=== PATIENT | female | born 1960 | race Caucasian/White ===

== ENCOUNTER → 2016-04-08 | Day surgery (SDC) | payer BC ==
--- NOTE | 2016-04-03 21:37 | HP ---
ADMISSION HISTORY AND PHYSICAL: DATE OF ADMISSION: 04/08/16 ATTENDING SURGEON: Dr. Noah Longoria (dictated by KEEGAN Hong). CHIEF COMPLAINT: Umbilical pain, status post umbilical hernia repair with mesh. HISTORY OF PRESENT ILLNESS: This is a generally healthy 56-year-old female, who underwent repair of umbilical hernia on 11/06/15 with a Ventralex I believe 4.3 cm mesh. She did experience some problem with wound infection, which was treated successfully with antibiotic. Over the 16 months, she has had intermittent pain ranging from minimal to significant particularly in the first weeks of February. She did see Dr. Longoria at that time and discussed options. Because of persistent symptoms, she has opted to proceed as scheduled with exploration of umbilical wound with removal of mesh and primary repair of umbilical hernia. She understands the indications, risks, benefits and alternatives as well as the expected perioperative course. PAST MEDICAL HISTORY: Unremarkable for any chronic medical problem. She does use loratadine p.r.n. for seasonal allergies. PAST SURGICAL HISTORY: Previous surgeries include open umbilical hernia repair with mesh as noted above, diagnostic laparoscopies x2 for endometriosis, surgery for her left index finger and D and C remotely. No surgical or anesthesia problems reported otherwise. CURRENT MEDICATIONS: 1. Loratadine 10 mg once daily p.r.n. 2. Ibuprofen p.r.n. DRUG ALLERGIES: BACTRIM (nausea and vomiting), PENICILLIN and ERYTHROMYCIN ( rash), TETRACYCLINE (rash and nausea) FAMILY HISTORY: Negative for anesthesia problems, bleeding, or clotting disorders. SOCIAL HISTORY: The patient is . She works as a teacher. She denies the use of tobacco. She drinks between 3 and 4 glasses of wine per week. REVIEW OF SYSTEMS: General: No recent constitutional symptoms or acute illnesses other than described in the HPI. Weight has been stable. Cardiovascular: No chest pain, palpitations, history of heart murmur. Respiratory: No history of asthma, chronic cough, or shortness of breath. GI: No problems reported. She did undergo screening colonoscopy around age 51 which she states was a normal study, was recommended followup of 10 years. : No problems reported. DIRECTOR OF INDIVIDUAL GIVING: She is up to date within the past year for breast exam and mammogram and within the past 3 years, her pelvic exam and Pap smear all reportedly normal. Endocrine: No diabetes or thyroid dysfunction. PHYSICAL EXAMINATION GENERAL: Well-nourished, well-developed female, in no acute distress. VITAL SIGNS: Height 5 feet 4 inches, weight 120 pounds by history. Other vital signs per nursing. HEENT: Pupils equal and round, reactive. EOMs intact. No conjunctival pallor. Oropharynx: Teeth in good repair. No intraoral lesions. Mucous membranes are moist. NECK: No lymphadenopathy, thyromegaly, or masses. LUNGS: Clear to auscultation. No wheezes. HEART: Regular rate and rhythm. No murmur noted. BREAST: Not examined. ABDOMEN: Well-healed surgical scar. There is some palpable induration and/or from the mesh itself. On today's exam, this was minimally tender. There is no erythema or evidence of infection. The remainder of the abdomen is soft and nontender and without palpable masses or organomegaly. GENITALIA AND RECTAL: Not done. BACK: No spinous process or CVA tenderness. EXTREMITIES: No edema. NEUROLOGICAL: Grossly intact. SKIN: Warm and dry. No suspicious rashes or lesions noted. IMPRESSION: Umbilical pain, status post umbilical hernia repair with mesh. PLAN: Exploration of umbilical wound with removal of mesh and primary repair of umbilical hernia. KEEGAN MICHEL CC: Lexa Interiano NP, CORPORATE ANALYST* [id number]/[facility] #: [id number] MTDD
[~2016-04-08] MED LIST: Buffered Lidocaine 1% SYR 3ML* 3 ML/SYR SYRINGE INTRADERM ONE; Buffered Lidocaine 1% SYR 3ML* 3 ML/SYR SYRINGE ONE; Bupivacaine 0.5% W/EPI SDV* 30 ML VIAL ONE; Clindamycin 900 MG IVPREMIX(* 900 MG/50 ML SDV IV ONE; Dexamethasone IV* 4 MG/ML 1 ML (4 MG) ONE; DiMENhydriNATE IV* 50 MG/ML VIAL IV PUSH PRN; Ibuprofen TAB* 400 MG ONE; Ibuprofen TAB* 400 MG PO ONE; Lidocaine 1% INJ* 10 MG/ML 30 ML SDV ONE; Lidocaine 2% MPF* 2 ML VIAL ONE; Ondansetron INJ* 2 MG/ML VIAL ONE; Propofol* 10 MG/ML 20 ML BTL IV PUSH ONE; Scopolamine 1.5 mg* PATCH ONE; Scopolamine 1.5 mg* PATCH TRANSDERM SCH; Scopolamine PATCH Remove* 1 NOTE MISC PATCH OFF SCH; Sodium Citrate/Citric Acid* 15 ML UDC ONE; Sodium Citrate/Citric Acid* 15 ML UDC PO ONE; ceFAZolin 2 GM PREMIX (*) 0 GM/0 ML BAG IVPB ONE; fentaNYL* 50 MCG/ML 2 ML VIAL (100 MCG VIAL) IV PRN; fentaNYL* 50 MCG/ML 2 ML VIAL (100 MCG VIAL) ONE; oxyCODONE/Acetamin 5/325 MG* TAB ONE; oxyCODONE/Acetamin 5/325 MG* TAB PO PRN
--- NOTE | 2016-04-08 09:24 | SURGPN ---
Brief Operative Note - Surgery Procedures: Pre-OP Diagnoses: Abdominal pain s/p umbilical hernia repair with mesh Post-op Diagnosis: same Procedure: Explioration of umbilical incision, removal of mesh , and open umbilical hernia repair Surgeon: Von Asst: Jeaneth Anethesia: GA with LMA Bylebycharlene EBL: minimal IVF: 1000cc LR Specimen: foreign body Drains: none
[2016-04-08 10:15] VITALS: BP 118/80
--- NOTE | 2016-04-08 22:49 | OP ---
DATE OF OPERATION: 04/08/16 - [facility] DATE OF : 62 SURGEON: Dr. Longoria. NEGATIVE RETOUCHER: Dawna Eric NP ANESTHESIOLOGIST: Dr. Carl. ANESTHESIA: General anesthesia with LMA. PRE-OP DIAGNOSIS: Abdominal pain, status post umbilical hernia repair with mesh. POST-OP DIAGNOSIS: Abdominal pain, status post umbilical hernia repair with mesh. OPERATIVE PROCEDURE: Exploration of umbilical wound, removal of old mesh, and primary repair of umbilical hernia. ESTIMATED BLOOD LOSS: Minimal blood loss. IV FLUIDS: 1 L of crystalloid fluid given. SPECIMEN: Foreign body. DRAINS: None. COUNTS: Lap pad count and instrument count correct at the end of the procedure. DESCRIPTION OF PROCEDURE: The patient was identified in the preoperative area and marked. Case again discussed with her and her , going over the expectations. The patient wished to have this primarily closed despite any size of the hernia, and we agreed on this plan. She was taken back to the operating room. General anesthesia was induced. Sequential devices were on bilateral lower extremities. She received preoperative antibiotics and then her abdomen was prepped and draped in the standard surgical fashion and a time- out was performed. An infraumbilical incision was made. This was deepened down to the anterior fascia in the inferior aspect. Scarring was then taken down with sharp dissection until we freed up the umbilical skin from the underlying scarring. Once we had the defect identified, we cleared off fascia throughout 360 degrees. We did make a small rent in the anterior fascia just right of midline. This was just under 1 cm. Next with the scalpel we were able to enter into the mesh patch that had been placed at the hernia defect. Once we could grasp the mesh, we were able to dissect this entirely free from its peritoneal location in its entirety. The mesh was in the appropriate manner without wrinkling and came off with both sharp and blunt dissection in its entirety and was passed off in more than one section. The wound was then irrigated. Hemostasis was achieved. The defect measured approximately 2.25 cm and was primarily closed with #1 Surgipro sutures in a [id number] fashion. Four stitches in all were used in this fashion and we did place 2 simple sutures at the lateral aspect. We tied them at the end to assure that we did not have any intraabdominal content. Intraabdominally, we only saw omentum and there was no evidence of free fluid or any injury. The small rent in the anterior fascia was closed laterally with a single 0 Polysorb suture. The wound was irrigated. Hemostasis was achieved. Umbilical skin was tacked down with a 2-0 Polysorb suture and we reapproximated the defect with both 2-0 and 3-0 Polysorb sutures and a 4-0 Monocryl subcuticular suture. Steri -Strips and sterile dressing were applied. The patient tolerated the procedure well and was transferred to the PACU in stable condition. CC: Lexa Interiano NP; [facility] * [id number]/[facility] #: [id number] MTDD
== END | disposition home or self-care (01) ==
LOC: OR 06:24
PROVIDERS: ATTEND Surgery
DX: T85.848A Pain due to other internal prosthetic devices, implants and grafts, initial encounter (principal); Y83.1 Surgical operation with implant of artificial internal device as the cause of abnormal reaction of the patient, or of later complication, without mention of misadventure at the time of the procedure
CPT/HCPCS: 88304; A9270-GY; C1781; J0690; J1100; J2405; J2704; J3010

== ENCOUNTER 2017-03-20 09:48 | Emergency (ER) | payer BC ==
[2017-03-20 10:16] VITALS: BP 94/63
== END 2017-03-20 11:30 | disposition left against medical advice (07) ==
LOC: UCEAST 09:48
DX: Z53.21 Procedure and treatment not carried out due to patient leaving prior to being seen by health care provider (principal)

== ENCOUNTER 2017-07-25 17:54 | Emergency (ER) | payer BC ==
--- NOTE | 2017-07-25 18:24 | UC ---
FLU HPI - HPI Summary HPI Summary: Pt presents with fever, cough, sore throat, and body aches that began yesterday. 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 Has been taking ibuprofen for her symptoms with mild relief. Denies SOB, chest pain, abdominal pain, n/v/d/c. - History of Current Complaint Stated Complaint: FLU SYMPTOMS Time Seen by Provider: 07/25/17 18:17 Hx Obtained From: Patient Hx Last Menstrual Period: 3 yrs ago Onset/Duration: Sudden Onset Severity Currently: Moderate Severity Initially: Moderate Pain Intensity: 7 Pain Scale Used: 0-10 Numeric - Allergy/Home Medications Allergies/Adverse Reactions: Allergies Allergy/AdvReac Type Severity Reaction Status Date / Time erythromycin base Allergy Rash Verified 07/25/17 18:34 [From Erythrocin] Penicillins Allergy Rash Verified 07/25/17 18:34 sulfamethoxazole Allergy Nausea And Verified 07/25/17 18:34 [From Bactrim] Vomiting trimethoprim [From Bactrim] Allergy Nausea And Verified 07/25/17 18:34 Vomiting PMH/Surg Hx/FS Hx/Imm Hx - Additional Past Medical History Additional PMH: None Previously Healthy: Yes - Surgical History Surgical History: Yes Surgery Procedure, Year, and Place: "bumps on finger" R/T [place]RITIS, [place]. [place]OSCOPY FOR [place]OM[place]RIOSIS, 1990, [place]. [place] [facility] [place] - Family History Known Family History: Positive: Cardiac Disease Negative: Diabetes - Social History Occupation: Employed Full-time Lives: With Family Alcohol Use: Occasionally Alcohol Amount: DAILY X1 Substance Use Type: None Smoking Status (MU): Never Smoked Tobacco Review of Systems Constitutional: Fever, Fatigue, Other - Body aches Skin: Negative Eyes: Negative ENT: Sore Throat Respiratory: Cough Cardiovascular: Negative Gastrointestinal: Negative Neurovascular: Negative Neurological: Negative Psychological: Negative All Other Systems Reviewed And Are Negative: Yes Physical Exam - Summary Physical Exam Summary: GENERAL: NAD. Mildly ill appearing SKIN: No rashes, sores, lesions, or open wounds. HEENT: Head: AT/NC Eyes: EOM intact. Conjunctiva clear without inflammation or discharge. Ears: Hearing grossly normal. TMs intact, no bulging, erythema, or edema. Nose: Nasal mucosa pink and moist. NTTP maxillary and frontal sinus. Throat: Posterior oropharynx mild erythema. Without exudates or tonsillar enlargement. Uvula midline. NECK: Supple. Nontender. No lymphadenopathy. CHEST: CTAB. No r/r/w. No accessory muscle use. Breathing comfortably and in no distress. CV: RRR. Without m/r/g. Pulses intact. Brisk cap refill. NEURO: Alert. CN II-XII grossly intact. PSYCH: Age appropriate behavior. Triage Information Reviewed: Yes Flu Course/Dx - Course Course Of Treatment: POC flu A positive rx for tamiflu and continue with supportive care. - Differential Dx/Diagnosis Provider Diagnoses: Influenza A Discharge - Sign-Out/Discharge Documenting (check all that apply): Discharge/Admit/Transfer - Discharge Plan Condition: Stable Disposition: HOME Prescriptions: Oseltamivir CAP* [Tamiflu CAP*] 75 mg PO BID #20 cap Patient Education Materials: Influenza (DC) Referrals: Palma Stanford MD [Primary Care Provider] - Additional Instructions: If you develop a fever, shortness of breath, chest pain, new or worsening symptoms - please call your PCP or go to the ED. - Billing Disposition and Condition Condition: STABLE Disposition: HOME
[2017-07-25 18:29] VITALS: BP 122/76
[2017-07-25] MEDS ORDERED: Oseltamivir CAP* 75 MG CAP PO ONE (19:08)
== END 2017-07-25 19:10 | disposition home or self-care (01) ==
LOC: UCEAST 17:54
DX: J10.1 Influenza due to other identified influenza virus with other respiratory manifestations (principal); Z88.1 Allergy status to other antibiotic agents; Z88.0 Allergy status to penicillin; Z88.2 Allergy status to sulfonamides
CPT/HCPCS: 87502; 99212; A9270-GY; G0463

== ENCOUNTER 2018-05-25 07:20 | Emergency (ER) | payer BC ==
[2018-05-25] MEDS ORDERED: Ondansetron ODT TAB* 4 MG PO ONE (08:10)
[2018-05-25] MEDS ORDERED: NS 0.9% 1000 ML** 1,000 ML IV SCH (08:15)
--- NOTE | 2018-05-25 08:18 | UC ---
Nausea/Vomiting/Diarrhea HPI - HPI Summary HPI Summary: DAY 5 OF NAUSEA AND WATERY DIARRHEA. EPISODES AT LEAST EVERY HOUR SOMETIMES MORE FREQUENTLY. DENIES ANY BLOODY STOOLS. NO RECENT ANTIBIOTIC USE. PRIOR TO ONSET OF SYMPTOMS WAS VISITING FAMILY OUT OF STATE AND SO ATE OUT AT [employer] [employer]. FEELS FATIGUED AND DEHYDRATED. NO FEVER. INITIALLY HAD VOMITING WELL BUT THAT HAS ABATED ALTHOUGH THE NAUSEA HAS PERSISTED. DOES NOT WORK WITH ANIMALS. - History of Current Complaint Chief Complaint: UCGI Stated Complaint: DIARRHEA Time Seen by Provider: 05/25/18 07:52 Hx Obtained From: Patient, Family/Senior Internal Auditor - Hx Last Menstrual Period: 3 yrs ago Onset/Duration: Sudden Onset, Lasting Days, Still Present Timing: Constant Severity Initially: Moderate Severity Currently: Moderate Pain Intensity: 0 Pain Scale Used: 0-10 Numeric Location: Diffuse Aggravating Factor(s): Food Alleviating Factor(s): Nothing Nausea/Vomiting Presence: Nauseated, Vomiting Vomiting Characteristics: Nonbilious Diarrhea Presence: Yes Diarrhea Frequency: Every 15-60 minutes Diarrhea Duration: 3-7 days Diarrhea Characteristics: Watery - Allergies/Home Medications Allergies/Adverse Reactions: Allergies Allergy/AdvReac Type Severity Reaction Status Date / Time erythromycin base Allergy Rash Verified 05/25/18 07:32 [From Erythrocin] Penicillins Allergy Rash Verified 05/25/18 07:32 sulfamethoxazole Allergy Nausea And Verified 05/25/18 07:32 [From Bactrim] Vomiting trimethoprim [From Bactrim] Allergy Nausea And Verified 05/25/18 07:32 Vomiting PMH/Surg Hx/FS Hx/Imm Hx Previously Healthy: Yes - Surgical History Surgical History: Yes Surgery Procedure, Year, and Place: "bumps on finger" R/[place]RITIS, 2000 [place]. [place]OSCOPY FOR ENDOMETRIOSIS, 1990, [place]. UMBILICAL [place]ERNIA 2015, [facility] [place] - Family History Known Family History: Positive: Cardiac Disease Negative: Diabetes - Social History Alcohol Use: Daily Alcohol Amount: DAILY X1 Substance Use Type: None Smoking Status (MU): Never Smoked Tobacco Review of Systems All Other Systems Reviewed And Are Negative: Yes Constitutional: Positive: Fatigue Respiratory: Positive: Negative Cardiovascular: Positive: Negative Gastrointestinal: Positive: Vomiting, Diarrhea, Nausea Physical Exam Triage Information Reviewed: Yes Appearance: No Pain Distress, Well-Nourished, Ill-Appearing - APPEARS FATIGUED Vital Signs: Initial Vital Signs Temp 98.4 F 05/25/18 07:33 Pulse 61 05/25/18 07:33 Resp 16 05/25/18 07:33 BP 131/77 05/25/18 07:33 Pulse Ox 99 05/25/18 07:33 Vital Signs Reviewed: Yes Eyes: Positive: Conjunctiva Clear ENT: Positive: Hearing grossly normal, Pharynx normal Neck: Positive: Supple, Nontender, No Lymphadenopathy Respiratory Exam: Normal Cardiovascular Exam: Normal Abdomen Description: Positive: Nontender, Soft. Negative: Distended, Guarding Bowel Sounds: Positive: Present Musculoskeletal: Positive: No Edema Neurological: Positive: Alert Psychological: Positive: Normal Response To Family, Age Appropriate Behavior Skin: Negative: Rashes Re-Evaluation - Re-Evaluation First Eval Re-Evaluation Time: 09:20 - IMPROVED AFTER 1LNS, 4MG ZOFRAN. READY FOR D/C Change: Improved Naus/Vom/Diarrhea Course/Dx - Course Course Of Treatment: IMPROVED AFTER 1 L NORMAL SALINE AND 4 MG ZOFRAN. DISCUSSED WITH PATIENT EMPIRIC ANTIBIOTIC TREATMENT FOR HER DIARRHEA HOWEVER SHE DECLINES PREFERRING TO WAIT FOR RESULTS OF STOOL STUDIES WHICH I THINK IS REASONABLE. PATIENT WILL STAY HYDRATED. ZOFRAN NEEDED FOR NAUSEA. BLAND DIET/CLEAR LIQUIDS. TO ER IF SX WORSEN. - Differential Dx/Diagnosis Provider Diagnosis: Acute diarrhea Condition At Discharge: Stable Discharge - Sign-Out/Discharge Documenting (check all that apply): Patient Departure All imaging exams completed and their final reports reviewed: No Studies - Discharge Plan Condition: Stable Disposition: HOME Prescriptions: Ondansetron ODT TAB* [Zofran Odt TAB*] 4 mg PO Q6H PRN #20 tab.odt PRN Reason: Nausea/Vomiting Patient Education Materials: Acute Diarrhea (ED) Referrals: Palma Stanford MD [Primary Care Provider] - If Needed Additional Instructions: YOU FELT BETTER TODAY AFTER 1 L OF NORMAL SALINE AND 4 MG OF ZOFRAN. WILL SEND A PRESCRIPTION FOR ZOFRAN TO YOUR PHARMACY FOR YOU TO USE NEEDED. WILL HOLD OFF ON EMPIRIC ANTIBIOTICS TODAY PENDING STOOL STUDIES. STOOL KIT SENT HOME WITH YOU. PLEASE BRING A SAMPLE BACK FOR TESTING. GO TO THE ER WITHOUT FAIL IF YOU DEVELOP WORSENING ABDOMINAL PAIN, FEVER, BLOODY STOOLS OR ANY OTHER CONCERNING SYMPTOMS. BE SURE TO STAY WELL-HYDRATED. BLAND FOODS SUCH CRACKERS OR DRY TOAST. AVOID DAIRY FOOD, GREASY FOOD, SPICY FOODS, CAFFEINE. - Billing Disposition and Condition Condition: STABLE Disposition: Home
[2018-05-25 09:51] VITALS: BP 117/73
--- NOTE | 2018-05-26 08:57 | UC ---
- Progress Note Progress Note: neg fecal lactoferrin neg giardia/crypto cultures pending no change damian 05/26 Re-Evaluation - Re-Evaluation First Eval Re-Evaluation Time: 09:20 - IMPROVED AFTER 1LNS, 4MG ZOFRAN. READY FOR D/C Change: Improved Course/Dx - Diagnoses Provider Diagnoses: Acute diarrhea Discharge - Sign-Out/Discharge Documenting (check all that apply): Post-Discharge Follow Up All imaging exams completed and their final reports reviewed: No Studies - Discharge Plan Condition: Stable Disposition: HOME Prescriptions: Ondansetron ODT TAB* [Zofran Odt TAB*] 4 mg PO Q6H PRN #20 tab.odt PRN Reason: Nausea/Vomiting Patient Education Materials: Acute Diarrhea (ED) Referrals: Palma Stanford MD [Primary Care Provider] - If Needed Additional Instructions: YOU FELT BETTER TODAY AFTER 1 L OF NORMAL SALINE AND 4 MG OF ZOFRAN. WILL SEND A PRESCRIPTION FOR ZOFRAN TO YOUR PHARMACY FOR YOU TO USE NEEDED. WILL HOLD OFF ON EMPIRIC ANTIBIOTICS TODAY PENDING STOOL STUDIES. STOOL KIT SENT HOME WITH YOU. PLEASE BRING A SAMPLE BACK FOR TESTING. GO TO THE ER WITHOUT FAIL IF YOU DEVELOP WORSENING ABDOMINAL PAIN, FEVER, BLOODY STOOLS OR ANY OTHER CONCERNING SYMPTOMS. BE SURE TO STAY WELL-HYDRATED. BLAND FOODS SUCH CRACKERS OR DRY TOAST. AVOID DAIRY FOOD, GREASY FOOD, SPICY FOODS, CAFFEINE. - Billing Disposition and Condition Condition: STABLE Disposition: Home
== END 2018-05-25 09:50 | disposition home or self-care (01) ==
LOC: UCEAST 07:20
DX: R19.7 Diarrhea, unspecified (principal); R11.2 Nausea with vomiting, unspecified; R53.83 Other fatigue; E86.0 Dehydration; Z88.2 Allergy status to sulfonamides; Z88.0 Allergy status to penicillin; Z88.1 Allergy status to other antibiotic agents
CPT/HCPCS: 83630; 87045; 87046; 87077; 87328; 87329; 87899; 96361; 99212; A9270-GY; G0463